=== PATIENT | female | born 1940 | race Caucasian/White ===

== ENCOUNTER 2021-06-19 08:07 | Day surgery (SDC) | payer OTHER ==
[2021-06-18 12:31] LABS: Potassium 4.6 mmol/L (3.5-5.1)
--- NOTE | 2021-06-18 12:41 | RAD REPORT ---
EXAM DESCRIPTION: Debby Langley And Suzette (2 Views)06/18/2021 12:34 pm CLINICAL HISTORY: Preop for temporal artery biopsy COMPARISON: None FINDINGS: The lungs appear clear of acute infiltrate. The heart is borderline enlarged IMPRESSION: No acute abnormalities displayed
[2021-06-19] MEDS ORDERED: NA CHLORIDE 0.9% 50 ML ONE (08:16)
[2021-06-19] MEDS ORDERED: CEFAZOLIN SODIUM 1 GM/VIAL ONE (08:16)
[2021-06-19] MEDS ORDERED: LIDOCAINE 1% MPF 30 ML VIAL ONE ×2 (08:37→08:43)
[2021-06-19] MEDS: Ringers Lactate 1,000 ML IV ONE ×2 (08:41→09:11)
[2021-06-19] MEDS ORDERED: MIDAZOLAM HCL 2 MG/2 ML INJ ONE (08:43)
[2021-06-19] MEDS ORDERED: propofoL 200 MG/20 ML VIAL IV ONE (08:43)
[2021-06-19] MEDS ORDERED: FENTANYL CITR 100 MCG/2 ML ONE (08:43)
[2021-06-19] MEDS ORDERED: Mastisol Adhesive Liq ONE (09:57)
--- NOTE | 2021-06-19 10:03 | P.OP ---
Cooling Machine Operator: Angelic BAUM Preoperative diagnosis: Left eye vision change, rule out temporal arteritis Postoperative diagnosis: Same Primary procedure: Left temporal artery biopsy Secondary procedure: Doppler utilized Anesthesia: MAC Estimated blood loss: Minimal Specimen: Left temporal artery Findings: As above Operative Technique: Patient brought to the OR placed and placed in the supine position. MAC anesthesia begun. Patient prepped and draped in the usual sterile fashion. Lidocaine 1% infiltrated locally. Doppler device used to isolate a branch of the left temporal artery. Then 4 cm incision made above the left ear in the hairline. Subcutaneous tissue divided. Branch of the temporal artery identified. Proximal and distal control obtained with sharp and blunt dissection. A 4 cm segment of the left temporal artery excised and sent to pathology as specimen. 4-0 silk used to tie off both ends. Wound irrigated and bleeding controlled with cautery. 4-0 chromic used to reapproximate subcutaneous tissue and closed skin. Sterile dressing applied and patient awakened and taken to recovery in good general condition. CC: Dr. Gomez and Dr. Park's office Transferred to: Recovery Room Condition: Good
[2021-06-19] MEDS ORDERED: HYDROCODONE/APAP 7.5/325 MG TAB PO PRN (10:08)
[2021-06-19] MEDS ORDERED: HYDROCODONE/APAP 7.5/325 MG TAB ONE (10:45)
[2021-06-19 11:47] VITALS: TEMP 97
[2021-06-19 11:51] VITALS: BP 105/72; O2SAT 98
--- NOTE | 2021-06-23 11:29 | EKG ---
Test Date: 2021-06-18 Test Time: 11:02:13 Benefits Technician: MARZENA MEASUREMENT RESULTS: Intervals: Rate: 90 RI: 196 QRSD: 78 QT: 374 QTc: 457 [place]: P: 62 RI: 196 QRS: 35 T: 46 INTERPRETIVE STATEMENTS: Normal sinus rhythm Low voltage QRS Borderline ECG Compared to ECG 03/26/2017 11:19:01 Low QRS voltage now present Electronically Signed On 06-23-21 11:14:50 CDT by Brain [place]
== END 2021-06-19 11:35 | disposition home or self-care (01) ==
LOC: OR 08:07
PROVIDERS: ATTEND Surgery
PROC: 03BT0ZX Excision of Left Temporal Artery, Open Approach, Diagnostic (ICD-10-PCS; principal; 2021-06-19 09:15)
DX: H53.8 Other visual disturbances (principal); Z20.822 Contact with and (suspected) exposure to COVID-19
CPT/HCPCS: 93005; 80048; 36415; 88305; 71046; 37609; U0003; J2704; J2250; J3010; J7120; J0690

== ENCOUNTER 2021-10-13 08:53 | Emergency (ER) | payer OTHER ==
--- OUTSIDE RECORDS SUMMARY | 2021-10-13 08:57 | XMS REPORT | Continuity of Care Document ---
:1940 [address] [facility] [place], [place] t Address [address] [place] [address] Dr. Dinh [address] [place] [id number] Care Team Providers Name Role Phone LV Attending Clinician Unavailable Problems This patient has no known problems. Allergies, Adverse Reactions, Alerts This patient has no known allergies or adverse reactions. Medications This patient has no known medications. Procedures This patient has no known procedures. Encounters Start End Encounter Admission Attending Care Care Encounter Source Date/Time Date/Time Type Type Clinicians Facility Department ID 2020-01-19 2020-01-19 Outpatient REPLACED BY [facility] [id number] [address] 00:00:00 00:00:00 [facility] [address] 2020-01-19 2020-01-19 Outpatient REPLACED BY [facility] [id number] [address] 00:00:00 00:00:00 [facility] [address] Results This patient has no known results.
[2021-10-13] MEDS ORDERED: LIDOCAINE 1% 20 ML MDV ONE (09:19)
[2021-10-13] MEDS ORDERED: TETANUS & DIPHTHERIA TOX,ADULT 0.5 ML VIAL ONE (09:19)
--- NOTE | 2021-10-13 10:37 | RAD REPORT ---
EXAM DESCRIPTION: RAD - Forearm Left - 10/13/2021 10:23 am CLINICAL HISTORY: lacerationof the anterior distal forearm COMPARISON: None. FINDINGS: No fracture is identified. There is no dislocation or periosteal reaction noted. Bandaging overlies the laceration site. No foreign body is suspected. IMPRESSION: No foreign body identifiable. No acute bone or joint finding.
--- NOTE | 2021-10-13 11:30 | ER ---
Nurse's Notes [facility] Name: Josie Schultz Age: 81 yrs Sex: Female : 1940 Arrival Date: 10/13/2021 Time: 08:55 Bed 12 Private MD: Diagnosis: Laceration without foreign body of left forearm Presentation: 10/13 08:55 Chief complaint: Patient states: she fell in the garage and obtained a laceration to ap3 the inside of her left forearm. patient denies hitting her head or LOC. Coronavirus screen: At this time, the client does not indicate any symptoms associated with coronavirus-19. Ebola Screen: No symptoms or risks identified at this time. Initial Sepsis Screen: Does the patient meet any 2 criteria? No. Patient's initial sepsis screen is negative. Does the patient have a suspected source of infection? No. Patient's initial sepsis screen is negative. Risk Assessment: Do you want to hurt yourself or someone else? Patient reports no desire to harm self or others. Onset of symptoms was October 13, 2021. 08:55 Method Of Arrival: Ambulatory ap3 08:55 Acuity: BOBBY 3 ap3 Triage Assessment: 08:58 General: Appears uncomfortable, Behavior is calm, cooperative. Pain: Complains of pain ap3 in palmar aspect of left forearm. Neuro: Level of Consciousness is awake, alert, obeys commands, Oriented to person, place, time, situation. Cardiovascular: Patient's skin is warm and dry. Respiratory: Airway is patent Respiratory effort is even, unlabored, Respiratory pattern is regular, symmetrical. Derm: Wound noted palmar aspect of left forearm. Historical: - Allergies: 08:57 No Known Allergies; ap3 - PMHx: 08:57 Depressive disorder; ap3 - Immunization history:: Client reports receiving the 2nd dose of the Covid vaccine. - Social history:: Smoking status: Patient denies any tobacco usage or history of. Screenin:59 Abuse screen: Denies threats or abuse. Nutritional screening: No deficits noted. ap3 Tuberculosis screening: No symptoms or risk factors identified. 09:18 Fall Risk None identified. jl7 Assessment: 09:18 General: Appears in no apparent distress. uncomfortable, Behavior is calm, cooperative, jl7 appropriate for age. Pain: Complains of pain in palmar aspect of left forearm Pain currently is 5 out of 10 on a pain scale. Neuro: Level of Consciousness is awake, alert, obeys commands, Oriented to person, place, time, situation. Cardiovascular: Patient's skin is warm and dry. Respiratory: Airway is patent Respiratory effort is even, unlabored, Respiratory pattern is regular, symmetrical. Derm: Skin is pink, warm \T\ dry. Injury Description: Laceration sustained to left arm and palmar aspect of left forearm is full thickness, 2.6 to 7.5 cm long, was sustained 30-60 minutes ago. no active bleeding noted at this time. Vital Signs: 08:55 BP 88 / 71; Pulse 108; Resp 19; Temp 98.1; Pulse Ox 97% ; Weight 81.65 kg; Height 5 ft. ap3 9 in. (175.26 cm); Pain 5/10; 09:08 BP 107 / 64; ap3 08:55 Body Mass Index 26.58 (81.65 kg, 175.26 cm) ap3 ED Course: 08:55 Patient arrived in ED. ap3 08:57 Triage completed. ap3 08:59 Arm band placed on right wrist. ap3 09:02 Ajit Crabtree NP is PHCP. pm1 09:03 Jimmy Payne MD is Attending Physician. pm1 09:16 George Ma RN is Primary Nurse. jl7 09:18 Patient has correct armband on for positive identification. Bed in low position. Call jl7 light in reach. Side rails up X 1. 10:24 Forearm Left XRAY In Process Unspecified. EDMS 11:35 Assist provider with laceration repair on palmar aspect of left forearm that was jl7 between 2.6 to 7.5 cm using sutures. Set up tray. Performed by Ajit Crabtree NP Dressed with band aid, Patient tolerated well. Patient did not have IV access during this emergency room visit. Administered Medications: 09:16 Drug: Tetanus Toxoid,Adsorbed 0.5 ml {Industrial Maintenance Manager: [employer]. Exp: 06/14/2023. Lot jl7 #: [id number]. } Route: IM; Site: left deltoid; 11:23 Follow up: Response: (VIS) Vaccine information sheet provided today. Questions and/or jl7 concerns addressed. VIS edition date: Oct 25, 2020.; No adverse reaction 11:23 Drug: Lidocaine (1 %) 5 ml {Note: administered by NELLY Fong.} Volume: 5 ml; Route: jl7 Infiltration; Medication: 09:18 Vaccine Information Statement (VIS) provided today. Questions and/or concerns la addressed. VIS edition date: October 25, 2021. Outcome: 11:30 Discharge ordered by MD. pm1 11:35 Discharged to home ambulatory. jl7 11:35 Condition: stable 11:35 Discharge instructions given to patient, family, Instructed on discharge instructions, follow up and referral plans. medication usage, Demonstrated understanding of instructions, follow-up care, medications, Prescriptions given X 1. 11:36 Patient left the ED. la Signatures: Dispatcher [employer] EDMS Ajit Crabtree NP HEAD WRESTLING COACH pm1 George Ma RN RN jl7 Silvia Page RN RN ap3
--- NOTE | 2021-10-13 11:31 | EDPHYS ---
Physician Documentation [facility] Name: Josie Schultz Age: 81 yrs Sex: Female : 1940 Arrival Date: 10/13/2021 Time: 08:55 Bed 12 Private MD: ED Physician Jimmy Payne HPI: 10/13 09:08 This 81 yrs old Female presents to ER via Ambulatory with complaints of Laceration To pm1 Arm. 09:08 The patient has a laceration related to: tripped while walking in her garage between a pm1 tight area and possibly cut her forearm on the bike occurred at home, and there are no complicating factors. The laceration(s) is(are) located on the palmar aspect of left forearm. Onset: The symptoms/episode began/occurred just prior to arrival. Associated signs and symptoms: Pertinent negatives: deformity, numbness distal to injury, suspected foreign body. The patient has not experienced similar symptoms in the past. The patient has not recently seen a physician. Negative for chest pain, shortness of breath, headache, head injury, neck pain, LOC. Historical: - Allergies: 08:57 No Known Allergies; ap3 - PMHx: 08:57 Depressive disorder; ap3 - Immunization history:: Client reports receiving the 2nd dose of the Covid vaccine. - Social history:: Smoking status: Patient denies any tobacco usage or history of. ROS: 09:08 Constitutional: Negative for fever, chills, and weight loss, Cardiovascular: Negative pm1 for chest pain, palpitations, and edema, Respiratory: Negative for shortness of breath, cough, wheezing, and pleuritic chest pain, Abdomen/GI: Negative for abdominal pain, nausea, vomiting, diarrhea, and constipation, Back: Negative for injury and pain, MS/Extremity: Negative for injury and deformity, Neuro: Negative for headache, weakness, numbness, tingling, and seizure. 09:08 Skin: Positive for laceration(s), of the palmar aspect of left forearm. 09:08 All other systems are negative. Exam: 09:08 Constitutional: This is a well developed, well nourished patient who is awake, alert, pm1 and in no acute distress. Head/Face: Normocephalic, atraumatic. 09:08 Cardiovascular: Exam negative for acute changes, Rate: normal, Rhythm: regular, Pulses: no pulse deficits are appreciated. 09:08 Respiratory: Exam negative for acute changes, respiratory distress, shortness of breath. 09:08 Skin: Appearance: normal except for affected area, injury, laceration(s), the wound is approximately 6 cm(s), of the palmar aspect of left forearm, that can be described as clean, no foreign body, linear, without bleeding. 09:08 Neuro: Exam negative for acute changes, Orientation: is normal, Mentation: is normal, Motor: is normal, moves all fours, Sensation: is normal, no obvious gross deficits. Vital Signs: 08:55 BP 88 / 71; Pulse 108; Resp 19; Temp 98.1; Pulse Ox 97% ; Weight 81.65 kg; Height 5 ft. ap3 9 in. (175.26 cm); Pain 5/10; 09:08 BP 107 / 64; ap3 08:55 Body Mass Index 26.58 (81.65 kg, 175.26 cm) ap3 Laceration: 11:28 Wound Repair of 5cm ( 2.0in ) subcutaneous laceration to palmar aspect of left forearm. pm1 Linear shaped.. Distal neuro/vascular/tendon intact. Anesthesia: Local anesthetic administered with 5 mls of 1% lidocaine. Wound prep: Extensive cleansing with betadine with hibiclenz by me, Wound irrigation with saline by me, Wound explored extensively, Copious irrigation. Skin closed with 6 4-0 Prolene using simple sutures and sterile technique. Dressed with 4x4's, joanne wrap. Patient tolerated well. MDM: 09:03 Patient medically screened. pm1 11:28 Data reviewed: vital signs. Data interpreted: Pulse oximetry: on room air is 97 %. pm1 Interpretation: normal. Counseling: I had a detailed discussion with the patient and/or guardian regarding: the historical points, exam findings, and any diagnostic results supporting the discharge/admit diagnosis, the need for outpatient follow up, to return to the emergency department if symptoms worsen or persist or if there are any questions or concerns that arise at home. 10/13 09:08 Order name: Forearm Left XRAY; Complete Time: 10:44 pm1 10/13 09:08 Order name: Dressing - Wound; Complete Time: 09:16 pm1 10/13 09:08 Order name: Gloves, Sterile; Complete Time: 09:16 pm1 10/13 09:08 Order name: Prolene, Sutures; Complete Time: 11:24 pm1 10/13 09:08 Order name: Setup Suture Tray; Complete Time: 09:16 pm1 Administered Medications: 09:16 Drug: Tetanus Toxoid,Adsorbed 0.5 ml {[employer]c Storage Architect: [employer]. Exp: 06/14/2023. Lot jl7 #: [id number]. } Route: IM; Site: left deltoid; 11:23 Follow up: Response: (VIS) Vaccine information sheet provided today. Questions and/or jl7 concerns addressed. VIS edition date: Oct 25, 2020.; No adverse reaction 11:23 Drug: Lidocaine (1 %) 5 ml {Note: administered by NELLY Fogn.} Volume: 5 ml; Route: jl7 Infiltration; Disposition Summary: 10/13/21 11:30 Discharge Ordered Location: Home pm1 Problem: new pm1 Symptoms: have improved pm1 Condition: Stable pm1 Diagnosis - Laceration without foreign body of left forearm pm1 Followup: pm1 - With: Emergency Department - When: As needed - Reason: Worsening of condition Followup: pm1 - With: Private Physician - When: 10 - 14 days - Reason: Recheck today's complaints, Continuance of care, Staple/Suture removal, Re-evaluation by your physician Discharge Instructions: - Discharge Summary Sheet pm1 - Laceration Care, Adult pm1 Forms: - Medication Reconciliation Form pm1 - Thank You Letter pm1 - Antibiotic Education pm1 - Prescription Opioid Use pm1 Prescriptions: - Cephalexin 500 mg Oral Capsule - take 1 capsule by ORAL route every 8 hours for 10 days; 30 capsule; Refills: 0, pm1 Product Selection Permitted Signatures: Dispatcher [employer] Ajit Vazquez NP UNIT DIRECTOR pm1 George Ma RN RN jl7 Silvia Page RN RN ap3
[2021-10-13 11:41] VITALS: TEMP 98.1; O2SAT 97
[2021-10-13 11:42] VITALS: BP 107/64
== END 2021-10-13 11:36 | disposition home or self-care (01) ==
LOC: ER 08:53
PROC: 0JQH0ZZ Repair Left Lower Arm Subcutaneous Tissue and Fascia, Open Approach (ICD-10-PCS; principal; 2021-10-13)
DX: S51.812A Laceration without foreign body of left forearm, initial encounter (principal); Z23 Encounter for immunization
CPT/HCPCS: 90471; 90714; 99284